=== PATIENT | female | born 1970 | race Caucasian/White ===

== ENCOUNTER 2020-04-08 14:01 | Emergency (ER) | payer SELFPAY | END 2020-04-08 16:10 | disposition left against medical advice (07) | LOC: ERS 14:01 | DX: F11.10 Opioid abuse, uncomplicated (principal); I10 Essential (primary) hypertension; F17.210 Nicotine dependence, cigarettes, uncomplicated; F41.9 Anxiety disorder, unspecified; F32.9 Major depressive disorder, single episode, unspecified; Z79.899 Other long term (current) drug therapy | CPT/HCPCS: 93005 ==

== ENCOUNTER 2022-04-08 09:16 | Inpatient (IN) | payer SELFPAY ==
[2022-04-08 10:02] LABS: #Basophils 0.1 thou/uL (0.0-0.2); #Eosinphils 0.2 thou/uL (0.0-0.7); #Lymphocytes 2.8 thou/uL (1.20-3.40); #Monocytes 0.5 thou/uL (0.11-0.59); %Basophils 1.8 % (0.0-1.0); %Eosinophils 3.2 % (0.0-10.0); %Lymphocytes 42.2 % (21.0-51.0); %Monocytes 7.8 % (0.0-10.0); Hemoglobin 13.6 g/dL (12.0-16.0); Mean Corpuscular HGB CONC 33.1 g/dL (32.0-36.0); Mean Corpuscular Hemoglobin 32.1 pg (27.0-31.0); Mean Corpuscular Volume 96.8 fL (78.0-98.0); Mean Platelet Volume 7.6 fL (7.4-10.4); Platelet Count 175 thou/uL (130-400); RBC Distribution Width 12.4 % (11.5-14.5); Red Blood Cell (RBC) Count 4.24 mill/uL (4.20-5.40); White Blood Cell (WBC) Count 6.7 thou/uL (4.8-10.8)
[2022-04-08 10:14] LABS: INR-International Normal Ratio 0.8; PTT 29.8 sec (22.9-36.1); Prothrombin Time 11.5 sec (12.0-14.7)
[2022-04-08 10:16] LABS: ALT (SGPT) 21 U/L (8-55); AST (SGOT) 24 U/L (5-34); Alkaline Phosphatase 85 U/L (40-110); Anion Gap 13 mmol/L (10-20); BUN (Urea Nitrogen) 17 mg/dL (7.0-18.7); Bilirubin, Total 0.4 mg/dL (0.2-1.2); Calc. Creatinine Clearance 0 mL/min (70-130); Calcium 8.9 mg/dL (7.8-10.44); Carbon Dioxide 27 mmol/L (22-29); Chloride 102 mmol/L (98-107); Glucose 63 mg/dL (70-105); Potassium 3.3 mmol/L (3.5-5.1); Sodium 139 mmol/L (136-145)
[2022-04-08] MEDS ORDERED: Metoprolol Tartrate 5 MG/5 ML VIAL ONE (11:02)
[2022-04-08] MEDS ORDERED: Iopamidol-370 76% 500 ML 1 ML ONE (11:21)
[2022-04-08 11:34] LABS: Bacteria/HPF 3+ HPF (None Seen); Bilirubin Negative (Negative); Blood, Urine Negative (Negative); Clarity Clear (Clear); Glucose, Urine (Dipstick) Normal (Negative); Ketone, Urine Negative (Negative); Leukocyte 500 Leu/uL (Negative); Nitrite Negative (Negative); Protein, Urine (Dipstick) Negative (Neg-Trace); RBC/HPF 0-3 HPF (0-3); Specific Gravity, Urine 1.022 (1.002-1.036); Squamous Epithelial 0-3 HPF (0-3); Urobilinogen Normal mg/dL (Less than 2); pH, Urine 6.5 (5.0-9.0)
[2022-04-08 12:30] LABS: Amphetamine Detected (NotDetected); Barbiturates Screen Not Detected (NotDetected); Benzodiazepine Screen Detected (NotDetected); Cocaine Metabolite Screen Not Detected (NotDetected); Methadone Not Detected (NotDetected); Methamphetamine Detected (NotDetected); Opiate Screen Detected (NotDetected); Oxycodone Screen Not Detected (NotDetected); Phencyclidine (PCP) Not Detected (NotDetected); THC/Cannabinoid Screen Not Detected (NotDetected); Tricyclic Screen Not Detected (NotDetected)
[2022-04-08] MEDS ORDERED: Senokot S 8.6-50 MG TAB PO PRN (13:02)
[2022-04-08] MEDS ORDERED: cefTRIAXone\\ROCEPHIN 1 GM VIAL ONE (13:02)
[2022-04-08] MEDS ORDERED: Acetaminophen 325 MG TAB PO PRN (13:02)
[2022-04-08] MEDS ORDERED: hydrALAZINE 20 MG/ML VIAL SLOW IVP PRN (13:10)
[2022-04-08] MEDS ORDERED: Nitroglycerin 0.4 MG TAB (25 Tab Bottle) SL PRN (13:10)
[2022-04-08] MEDS ORDERED: Electrolyte Replacement Protocol 1 EACH FS SCH (13:14)
[2022-04-08] MEDS ORDERED: Potassium Chloride 20 MEQ TAB PO SCH (14:00)
[2022-04-08 15:13] LABS: BHCG - Serum Negative (NEGATIVE)
[2022-04-08 15:14] LABS: Pregs Control Background? CLEAR/WHITE (CLR/WHITE); Pregs Control Bar Appear? YES (CONTROL BAR)
[2022-04-08 15:15] VITALS: BMI 22.1
[2022-04-08 15:28] LABS: Acetaminophen Less than 10.0 mcg/mL (10.0-30.0); Alcohol Less than 10 mg/dL (Less than 10); Salicylate Less than 8.0 mg/dL (15.0-30.0)
[2022-04-08 15:34] LABS: Troponin I Less than 0.010 ng/mL (< 0.028)
[2022-04-08] MEDS: Sodium Chloride 0.9% 1,000 ML IV SCH (16:30)
[2022-04-08 19:17] LABS: Troponin I 0.014 ng/mL (< 0.028)
[2022-04-08] MEDS: Famotidine 20 MG TAB PO SCH (21:52)
[2022-04-08] MEDS: Atorvastatin Calcium 40 MG TAB PO SCH (21:52)
[2022-04-09] MEDS: Sodium Chloride 0.9% 1,000 ML IV SCH (05:25)
[2022-04-09 05:59] LABS: #Basophils 0.1 thou/uL (0.0-0.2); #Eosinphils 0.1 thou/uL (0.0-0.7); #Lymphocytes 2.2 thou/uL (1.20-3.40); #Monocytes 0.4 thou/uL (0.11-0.59); #Neutrophils 2.9 thou/uL (1.40-6.50); %Basophils 1.1 % (0.0-1.0); %Eosinophils 2.6 % (0.0-10.0); %Lymphocytes 38.2 % (21.0-51.0); %Monocytes 7.2 % (0.0-10.0); %Neutrophils 50.9 % (42.0-75.0); Hemoglobin 14.3 g/dL (12.0-16.0); Mean Corpuscular Hemoglobin 31.8 pg (27.0-31.0); Mean Corpuscular Volume 96.4 fL (78.0-98.0); Mean Platelet Volume 7.4 fL (7.4-10.4); Platelet Count 198 thou/uL (130-400); RBC Distribution Width 12.6 % (11.5-14.5); White Blood Cell (WBC) Count 5.7 thou/uL (4.8-10.8)
[2022-04-09 06:11] LABS: INR-International Normal Ratio 0.9; Prothrombin Time 12.2 sec (12.0-14.7)
[2022-04-09 06:25] LABS: ALT (SGPT) 20 U/L (8-55); AST (SGOT) 24 U/L (5-34); Albumin 3.6 g/dL (3.5-5.0); Alkaline Phosphatase 62 U/L (40-110); Anion Gap 10 mmol/L (10-20); BUN (Urea Nitrogen) 10 mg/dL (7.0-18.7); Bilirubin, Total 0.4 mg/dL (0.2-1.2); Calc. Creatinine Clearance 96 mL/min (70-130); Calcium 8.7 mg/dL (7.8-10.44); Carbon Dioxide 24 mmol/L (22-29); Cardiac Risk 2.6 (Less than 4.5); Chloride 109 mmol/L (98-107); Cholesterol 168 mg/dl (< 200 Desired); Globulin 3.1 g/dL (2.4-3.5); Glucose 85 mg/dL (70-105); HDL Cholesterol 65 mg/dL (>60 Neg Risk); LDL Cholesterol, Calculated 88 mg/dL; Protein, Total 6.7 g/dL (6.0-8.3); Sodium 139 mmol/L (136-145); Triglycerides 75 mg/dL (Less than 150)
[2022-04-09] MEDS: Aspirin 325 mg Enteric Coated Tablet PO SCH (07:59)
[2022-04-09] MEDS: Famotidine 20 MG TAB PO SCH ×2 (07:59→21:15)
[2022-04-09] MEDS: Enoxaparin Sodium 40 MG/0.4 ML SYRINGE SC SCH (07:59)
[2022-04-09] MEDS ORDERED: Lisinopril 10 MG TAB PO SCH ×2 (12:15→21:00)
[2022-04-09] MEDS ORDERED: cefTRIAXone\\ROCEPHIN 1 GM in Sodium Chloride 0.9% 100 ML IVPB SCH (14:00)
[2022-04-09] MEDS: Atorvastatin Calcium 40 MG TAB PO SCH (21:15)
[2022-04-09] MEDS ORDERED: Nicotine 14 MG PATCH TOP SCH (23:00)
[2022-04-10] MEDS: Enoxaparin Sodium 40 MG/0.4 ML SYRINGE SC SCH (08:24)
[2022-04-10] MEDS: Aspirin 325 mg Enteric Coated Tablet PO SCH (08:24)
[2022-04-10] MEDS: Famotidine 20 MG TAB PO SCH (08:24)
[2022-04-10 08:26] VITALS: BP 174/110; TEMP 98.6
== END 2022-04-10 11:25 | disposition home or self-care (01) | DRG 69 ==
LOC: ERS 09:16 → NEURO 12:37 → OBSVTOIN 04-10 09:59
PROVIDERS: ADMIT Internal Medicine; ATTEND Internal Medicine
DX: G45.9 Transient cerebral ischemic attack, unspecified (principal); N39.0 Urinary tract infection, site not specified; Z20.822 Contact with and (suspected) exposure to COVID-19; M19.90 Unspecified osteoarthritis, unspecified site; E87.6 Hypokalemia; F17.210 Nicotine dependence, cigarettes, uncomplicated; B96.20 Unspecified Escherichia coli [E. coli] as the cause of diseases classified elsewhere; I12.9 Hypertensive chronic kidney disease with stage 1 through stage 4 chronic kidney disease, or unspecified chronic kidney disease; N18.2 Chronic kidney disease, stage 2 (mild); M32.9 Systemic lupus erythematosus, unspecified; Z87.820 Personal history of traumatic brain injury
CPT/HCPCS: 36415; 36416; 70450; 70496; 70498; 70551; 71045; 72141; 80053; 80061; 80178; 80306; 80307; 81003; 81015; 84484; 84703; 85025; 85610; 85730; 87077; 87086; 87186; 93005; 93306; 96372; 96376; G0378; J0696; J1650; J3490; J7050; Q9967; U0003; U0005

== ENCOUNTER 2022-06-30 07:11 | Emergency (ER) | payer SELFPAY ==
[2022-06-30] MEDS ORDERED: Lidocaine 1% PF 5 ML VIAL ONE (07:58)
[2022-06-30] MEDS ORDERED: Acetaminophen 500 MG TAB ONE (07:58)
[2022-06-30] MEDS ORDERED: Lidocaine 4% Cream 5 GM TUBE w/ Tegaderm ONE (08:00)
== END 2022-06-30 09:08 | disposition home or self-care (01) ==
LOC: ERS 07:11
DX: S51.811A Laceration without foreign body of right forearm, initial encounter (principal); S20.419A Abrasion of unspecified back wall of thorax, initial encounter; I10 Essential (primary) hypertension; F17.210 Nicotine dependence, cigarettes, uncomplicated; Z79.899 Other long term (current) drug therapy; W10.9XXA Fall (on) (from) unspecified stairs and steps, initial encounter
CPT/HCPCS: 12002

== ENCOUNTER 2023-08-22 18:38 | Observation (INO) | payer SELFPAY ==
[~2023-08-22 18:38] MED LIST: Iopamidol-370 76% 500 ML MDV (1 ML CHARGE) ONE
[2023-08-22 19:44] LABS: #Basophils 0.1 thou/uL (0.0-0.2); #Eosinphils 0.2 thou/uL (0.0-0.7); #Monocytes 0.6 thou/uL (0.11-0.59); #Neutrophils 3.2 thou/uL (1.40-6.50); %Basophils 0.8 % (0.0-1.0); %Eosinophils 2.9 % (0.0-10.0); %Lymphocytes 33.6 % (21.0-51.0); %Monocytes 10.1 % (0.0-10.0); %Neutrophils 52.4 % (42.0-75.0); Hematocrit 37.4 % (36.0-47.0); Hemoglobin 12.2 g/dL (12.0-16.0); Mean Corpuscular HGB CONC 32.6 g/dL (32.0-36.0); Mean Corpuscular Hemoglobin 31.6 pg (27.0-31.0); Mean Corpuscular Volume 96.9 fl (78.0-98.0); Mean Platelet Volume 9.7 fL (7.4-10.4); Platelet Count 210 10x3/uL (130-400); RBC Distribution Width 13.8 % (11.5-14.5); Red Blood Cell (RBC) Count 3.86 mill/uL (4.20-5.40); White Blood Cell (WBC) Count 6.1 10x3/uL (4.8-10.8)
[2023-08-22 19:56] LABS: INR-International Normal Ratio 0.9; Prothrombin Time 12.6 sec (12.0-14.7)
[2023-08-22 19:57] LABS: PTT 31.9 sec (22.9-36.1)
[2023-08-22 20:08] LABS: ALT (SGPT) 13 U/L (8-55); AST (SGOT) 22 U/L (5-34); Albumin 4.4 g/dL (3.5-5.0); Alkaline Phosphatase 69 U/L (40-110); Anion Gap 11 mmol/L (10-20); BUN (Urea Nitrogen) 14 mg/dL (9.8-20.1); Bilirubin, Total 0.3 mg/dL (0.2-1.2); Calc. Creatinine Clearance 0 mL/min (70-130); Calcium 9.5 mg/dL (7.8-10.44); Carbon Dioxide 26 mmol/L (22-29); Chloride 102 mmol/L (98-107); Estimated GFR 54; Globulin 2.8 g/dL (2.4-3.5); Glucose 89 mg/dL (70-105); Potassium 3.4 mmol/L (3.5-5.1); Protein, Total 7.2 g/dL (6.0-8.3); Sodium 136 mmol/L (136-145)
[2023-08-22 20:10] LABS: Troponin I Less than 0.010 ng/mL (< 0.028)
[2023-08-22 21:17] LABS: Bacteria/HPF None Seen HPF (None Seen); Bilirubin Negative (Negative); Blood, Urine 2+ (Negative); CAUTI Indications for Culture Alt mental st,lethar; Clarity Clear (Clear); Glucose, Urine (Dipstick) Normal (Negative); Ketone, Urine Negative (Negative); Leukocyte Negative Leu/uL (Negative); Nitrite Negative (Negative); Protein, Urine (Dipstick) Negative (Neg-Trace); Specific Gravity, Urine 1.016 (1.002-1.036); Squamous Epithelial 0-3 HPF (0-3); Urobilinogen Normal mg/dL (Less than 2); WBC/HPF 0-3 HPF (0-3); pH, Urine 6.5 (5.0-9.0)
[2023-08-22 21:25] LABS: Urine Culture Reflex No No
[2023-08-22 21:47] LABS: Acetaminophen Less than 10 mcg/mL (10.0-30.0); Alcohol Less than 10.0 mg/dL (Less than 10); Salicylate Less than 8.0 mg/dL (15.0-30.0)
[2023-08-22 22:32] LABS: Amphetamine Detected (NotDetected); Barbiturates Screen Not Detected (NotDetected); Benzodiazepine Screen Detected (NotDetected); Cocaine Metabolite Screen Not Detected (NotDetected); Methadone Not Detected (NotDetected); Methamphetamine Detected (NotDetected); Opiate Screen Not Detected (NotDetected); Oxycodone Screen Not Detected (NotDetected); Phencyclidine (PCP) Not Detected (NotDetected); THC/Cannabinoid Screen Not Detected (NotDetected); Tricyclic Screen Not Detected (NotDetected)
[2023-08-23] MEDS ORDERED: cloNIDine 0.1 MG TAB PO PRN (08:10)
[2023-08-23 09:05] LABS: Magnesium 2.1 mg/dL (1.6-2.6)
[2023-08-23 09:09] LABS: Troponin I Less than 0.010 ng/mL (< 0.028)
[2023-08-23] MEDS ORDERED: Ondansetron ODT 4 MG TAB PO PRN (09:42)
[2023-08-23] MEDS ORDERED: Ondansetron PF 4 MG/2 ML Vial IVP PRN (09:42)
[2023-08-23] MEDS ORDERED: Calcium Carbonate 500 MG ChewTAB PO PRN (09:42)
[2023-08-23] MEDS ORDERED: Senokot S 8.6-50 MG TAB PO PRN (09:42)
[2023-08-23] MEDS ORDERED: Aspirin 81 mg Enteric Coated Tablet PO SCH (09:45)
[2023-08-23] MEDS ORDERED: Cyanocobalamin 1000 MCG/ML VIAL IM SCH (09:45)
[2023-08-23] MEDS ORDERED: Aspirin 81 mg Enteric Coated Tablet ONE (10:44)
[2023-08-23] MEDS ORDERED: Potassium Bicarbonate/Cit Ac 20 MEQ TAB PO SCH ×3 (11:15→21:00)
[2023-08-23 11:37] LABS: Troponin I Less than 0.010 ng/mL (< 0.028)
[2023-08-23] MEDS: Famotidine 20 MG TAB PO SCH (20:58)
[2023-08-23] MEDS ORDERED: Multivit, Therapeutic 1 TAB PO SCH (21:00)
[2023-08-23] MEDS ORDERED: Atorvastatin Calcium 40 MG TAB PO SCH (21:00)
[2023-08-23] MEDS ORDERED: Thiamine 100 MG TAB PO SCH (21:00)
[2023-08-23] MEDS ORDERED: Cyanocobalamin (Vitamin B-12) 1,000 MCG TAB PO SCH (21:00)
[2023-08-23] MEDS ORDERED: Folic Acid 1 MG TAB PO SCH (21:00)
[2023-08-23 21:16] VITALS: BMI 22.6
[2023-08-24] MEDS ORDERED: Melatonin 3 MG TAB PO PRN (00:45)
[2023-08-24] MEDS: Acetaminophen 325 MG TAB PO PRN ×2 (01:04→10:21)
[2023-08-24 05:39] LABS: Cardiac Risk 2.2 (Less than 4.5)
[2023-08-24] MEDS ORDERED: Aspirin 81 mg Enteric Coated Tablet PO SCH (09:00)
[2023-08-24] MEDS: Famotidine 20 MG TAB PO SCH (10:21)
[2023-08-24] MEDS ORDERED: Amlodipine 5 MG TAB PO SCH ×2 (10:45→21:00)
[2023-08-24] MEDS ORDERED: Divalproex Sodium 500 MG ER.TAB PO SCH (10:45)
[2023-08-24] MEDS ORDERED: Gabapentin 100 MG CAP PO SCH ×3 (11:15→21:00)
[2023-08-24] MEDS ORDERED: Hydroxychloroquine Sulfate 200 MG TAB PO SCH (11:15)
[2023-08-24 11:53] VITALS: TEMP 98.2
[2023-08-24 15:52] VITALS: BP 140/86
[2023-08-24] MEDS ORDERED: risperiDONE 1 MG TAB PO SCH (21:00)
[2023-08-25] MEDS ORDERED: Hydroxychloroquine Sulfate 200 MG TAB PO SCH (09:00)
[2023-08-25] MEDS ORDERED: Divalproex Sodium 500 MG ER.TAB PO SCH (09:00)
== END 2023-08-24 16:50 | disposition home or self-care (01) ==
LOC: ERS 18:38 → ERHOLD 08-23 07:54 → 2SE 08-23 17:30
PROVIDERS: ADMIT Internal Medicine; ATTEND Internal Medicine
DX: R42 Dizziness and giddiness (principal); E87.6 Hypokalemia; I10 Essential (primary) hypertension; I07.1 Rheumatic tricuspid insufficiency; F17.210 Nicotine dependence, cigarettes, uncomplicated; F19.90 Other psychoactive substance use, unspecified, uncomplicated; Z90.89 Acquired absence of other organs; Z79.899 Other long term (current) drug therapy
CPT/HCPCS: 36415; 51701; 70450; 70496; 70498; 70551; 80053; 80061; 80306; 80307; 81001; 82140; 82607; 83735; 84443; 84484; 85025; 85610; 85730; 93005; 93306; 95712; 95819; 95957; 96372; G0378; J1650; J3420; Q9967

== ENCOUNTER 2023-10-10 10:59 | Emergency (ER) | payer OTHER, SELFPAY ==
[2023-10-10] MEDS ORDERED: Cephalexin 250 MG CAP ONE (11:36)
[2023-10-10] MEDS ORDERED: Sulfameth/Trimethoprim DS 800-160mg TAB ONE (11:36)
[2023-10-10] MEDS ORDERED: Ketorolac Tromethamine 30 MG/ML VIAL ONE (11:36)
== END 2023-10-10 13:02 | disposition home or self-care (01) ==
LOC: ERS 10:59
DX: L03.113 Cellulitis of right upper limb (principal); I10 Essential (primary) hypertension; F17.210 Nicotine dependence, cigarettes, uncomplicated; Z79.899 Other long term (current) drug therapy
CPT/HCPCS: 96372; J1885

== ENCOUNTER 2023-11-08 15:28 | Emergency (ER) | payer SELFPAY ==
[2023-11-08 16:25] LABS: Bilirubin Negative (Negative); Blood, Urine 2+ (Negative); CAUTI Indications for Culture Dysuria,urgency,freq; Clarity Turbid (Clear); Glucose, Urine (Dipstick) Normal (Negative); Ketone, Urine Negative (Negative); Leukocyte 500 Leu/uL (Negative); Nitrite Negative (Negative); Protein, Urine (Dipstick) 30 mg/dL (Neg-Trace); RBC/HPF 21-50 HPF (0-3); Specific Gravity, Urine 1.025 (1.002-1.036); WBC/HPF Greater than 50 HPF (0-3); Yeast-Budding 1+ HPF (None Seen); pH, Urine 5.5 (5.0-9.0)
[2023-11-08 16:26] LABS: Bacteria/HPF 1+ HPF (None Seen)
[2023-11-08 16:27] LABS: Urine Culture Reflex Yes Yes
[2023-11-08] MEDS ORDERED: Cephalexin 250 MG CAP ONE (17:13)
[2023-11-08] MEDS ORDERED: Metoprolol Tartrate 25 MG TAB ONE (17:14)
[2023-11-08] MEDS ORDERED: Phenazopyridine HCl 100 MG TAB ONE (17:14)
== END 2023-11-08 17:20 | disposition home or self-care (01) ==
LOC: ERS 15:28
DX: N39.0 Urinary tract infection, site not specified (principal); Z76.0 Encounter for issue of repeat prescription; F17.210 Nicotine dependence, cigarettes, uncomplicated; I10 Essential (primary) hypertension
CPT/HCPCS: 81001; 87077; 87086; 87186; 99283